=== PATIENT | male | born 1980 | race Caucasian/White ===

== ENCOUNTER 2017-12-18 19:36 | Emergency (ER) | payer SELFPAY ==
[2017-12-18 21:28] LABS: ABS Basophils 0 10^3/ul (0-0.2); ABS Eosinophils 0.1 10^3/ul (0-0.6); ABS Lymphocytes 0.9 10^3/ul (1.0-4.8); ABS Monocytes 0.5 10^3/ul (0-0.8); ABS Neutrophils 9.8 10^3/ul (1.5-7.7); ABS Nucleated RBC 0 10^3/ul; Eosinophil % 0.6 % (0-6); Hematocrit 44 % (42-52); Hemoglobin 14.7 g/dl (14.0-18.0); Mean Corpuscular HGB Conc 34 g/dl (31-36); Mean Corpuscular Hemoglobin 30 pg (27-31); Mean Corpuscular Volume 90 fL (80-94); Mean Platelet Volume 11 um3 (7.4-10.4); Nucleated Red Blood Cells % 0; Platelet Count 165 10^3/ul (150-450); Red Blood Count 4.85 10^6/ul (4.0-5.4); Red Cell Distribution Width 13 % (10.5-15); White Blood Count 11.3 10^3/ul (3.5-10.8)
[2017-12-18 21:43] LABS: EGFR Non-African American 93.6 (>60)
--- NOTE | 2017-12-18 22:14 | ED ---
Latha Resendiz Edward, scribed for Darron Cevallos MD on 12/18/17 at 2041 . Palpitations / Dysrhythmia - HPI Summary HPI Summary: 37 y/o male presents to the ED c/o sudden onset palpitations described as a weak heartbeat after waking up from a nap at around 18:30 today. Sx lasted around 45 minutes but have since resolved. Associated sx: general weakness, subjective chills. PMHx joint lyme disease around 1 year ago. Pt has had no issues since. - History of Current Complaint Chief Complaint: EDDysrhythmPalp Time Seen by Provider: 12/18/17 20:40 Hx Obtained From: Patient Onset/Duration: Sudden Onset, Lasting Minutes, Resolved Character: Slow - "weak" Aggravating: Nothing Alleviating: Nothing - Allergy/Home Medications Allergies/Adverse Reactions: Allergies Allergy/AdvReac Type Severity Reaction Status Date / Time No Known Allergies Allergy Verified 12/18/17 19:41 PMH/Surg Hx/FS Hx/Imm Hx Previously Healthy: No Endocrine/Hematology History: Reports: Other Endocrine/Hematological Disorders - Lyme Sensory History: Denies: Hx Legally Blind - Immunization History Date of Influenza Vaccine: Has not received thsi year Infectious Disease History: No Infectious Disease History: Denies: Traveled Outside the [place] in Last 30 Days - Family History Known Family History: Positive: Unknown - Social History Alcohol Use: None Hx Substance Use: No Substance Use Type: Reports: None Hx Tobacco Use: No Smoking Status (MU): Never Smoked Tobacco Review of Systems Positive: Chills Eyes: Negative ENT: Negative Positive: Palpitations Respiratory: Negative Gastrointestinal: Negative Genitourinary: Negative Musculoskeletal: Negative Skin: Negative Positive: Weakness Psychological: Normal All Other Systems Reviewed And Are Negative: Yes Physical Exam - Summary Physical Exam Summary: VITAL SIGNS: Reviewed. GENERAL: Patient is a well-developed and nourished male who is lying comfortable in the stretcher. Patient is not in any acute respiratory distress. HEAD AND FACE: No signs of trauma. No ecchymosis, hematomas or skull depressions. No sinus tenderness. EYES: PERRLA, EOMI x 2, No injected conjunctiva, no nystagmus. EARS: Hearing grossly intact. Ear canals and tympanic membranes are within normal limits. MOUTH: Oropharynx within normal limits. NECK: Supple, trachea is midline, no adenopathy, no JVD, no carotid bruit, no c- spine tenderness, neck with full ROM. CHEST: Symmetric, no tenderness at palpation LUNGS: Clear to auscultation bilaterally. No wheezing or crackles. CVS: Regular rate and rhythm, S1 and S2 present, no murmurs or gallops appreciated. ABDOMEN: Soft, non-tender. No signs of distention. No rebound no guarding, and no masses palpated. Bowel sounds are normal. EXTREMITIES: FROM in all major joints, no edema, no cyanosis or clubbing. NEURO: Alert and oriented x 3. No acute neurological deficits. Speech is normal and follows commands. SKIN: Dry and warm Triage Information Reviewed: Yes Vital Signs On Initial Exam: Initial Vitals Temp Pulse Resp BP Pulse Ox 99.6 F 91 16 119/77 98 12/18/17 19:41 12/18/17 19:41 12/18/17 19:41 12/18/17 19:41 12/18/17 19:41 Vital Signs Reviewed: Yes Diagnostics - Vital Signs Vital Signs Temp Pulse Resp BP Pulse Ox 12/18/17 20:30 70 19 110/81 99 12/18/17 20:27 12 102/70 12/18/17 19:41 99.6 F 91 16 119/77 98 - Laboratory Result Diagrams: 12/18/17 21:10 12/18/17 21:10 Lab Statement: Any lab studies that have been ordered have been reviewed, and results considered in the medical decision making process. - EKG 1 EKG Interpretation: SR @ 78 BPM. Normal axis, normal interval, no ischemic changes. Course/Dx - Course Assessment/Plan: EKG normal. Blooddwork without significant abnormalities. Pt will be d/c home with f/u with PCP. - Diagnoses Provider Diagnoses: Weakness Discharge - Discharge Plan Condition: Stable Disposition: HOME Patient Education Materials: Weakness (ED) Referrals: [facility] [place] [facility] [Outside] - 4 Days (PLEASE F/U IN 3-5 DAYS) Additional Instructions: RETURN TO THE ED FOR THE RETURN OR WORSENING OF SYMPTOMS The documentation as recorded by the Latha mcgovern Edward accurately reflects the service I personally performed and the decisions made by Ban murrieta Abdul, MD.
[2017-12-18 22:34] VITALS: BP 103/69
== END 2017-12-18 22:35 | disposition home or self-care (01) ==
LOC: ED 19:36
DX: R53.1 Weakness (principal); R00.2 Palpitations
CPT/HCPCS: 36415; 80053; 85025; 93005; 99283